=== PATIENT | male | born 1975 | race Two or more races ===

== ENCOUNTER 2016-07-06 10:41 | Inpatient (IN) | payer OTHER ==
[2016-07-06 11:46] VITALS: BMI 26.9
--- NOTE | 2016-07-06 12:39 | HP ---
CIWA Score - CIWA Score Nausea/Vomitin Muscle Tremors: 3 Anxiety: 3 Agitation: 3 Paroxysmal Sweats: 1-Minimal Palms Moist Orientation: 0-Oriented Tacttile Disturbances: 2-Mild Itch/Numbness/Burn Auditory Disturbances: 2-Mild Harshness/Frighten Visual Disturbances: 2-Mild Sensitivity Headache: 2-Mild CIWA-Ar Total Score: 21 Admission ROS BHS - HPI Chief Complaint: I NEED HELP TO STOP USING DRUGS XANAX,COCAINE,HEROIN,ALCOHOL,MMTP 50 MGS/DAY, LAST MEDICATED TODAY UMBILICAL HERNIA LAST DETOX [facility] 01/09 NICOTINE DEPENDENCE NIELSON LOSS NO SIGNIFICANT PERIOD OF SOBRIETY Allergies/Adverse Reactions: Allergies Allergy/AdvReac Type Severity Reaction Status Date / Time No Known Allergies Allergy Verified 07/06/16 12:29 History of Present Illness: THIS 40 YEARS OLD MALE WITH MULTIPLE DRUGS USING,ALCOHOL,MMTP FOR DETOX MENTIONED Exam Limitations: No Limitations - Ebola screening Have you traveled outside of the country in the last 21 days: No Have you been sick,other than usual withdrawal symptoms: No Do you have a fever: No - Review of Systems Constitutional: Chills, Loss of Appetite, Malaise, Night Sweats, Changes in sleep, Weakness, Unintentional Wgt. Loss EENT: reports: Tearing, Nose Congestion Respiratory: reports: No Symptoms reported Cardiac: reports: No Symptoms Reported GI: reports: Nausea, Poor Appetite, Abdominal cramping : reports: No Symptoms Reported Musculoskeletal: reports: Back Pain, Joint Pain, Muscle Pain, Joint Stiffness Integumentary: reports: Dryness Neuro: reports: Headache, Tremors Endocrine: reports: No Symptoms Reported Hematology: reports: No Symptoms Reported Psychiatric: reports: Anxious (INSOMNIA), Depressed Patient History - Patient Medical History Hx Anemia: No Hx Asthma: No Hx Chronic Obstructive Pulmonary Disease (COPD): No Hx Cancer: No Hx Cardiac Disorders: No Hx Congestive Heart Failure: No Hx Hypertension: No Hx Hypercholesterolemia: No Hx Pacemaker: No HX Cerebrovascular Accident: No Hx Seizures: No Hx Dementia: No Hx Diabetes: No Hx Gastrointestinal Disorders: No Hx Liver Disease: No Hx Genitourinary Disorders: No Hx Sexually Transmitted Disorders: No Hx Renal Disease (ESRD): No Hx Thyroid Disease: No Hx Human Immunodeficiency Virus (HIV): No ([place] 01/09) Hx Hepatitis C: No Hx Depression: Yes (ANXIETY,INSOMNIA) Hx Suicide Attempt: No Hx Bipolar Disorder: No Hx Schizophrenia: No Other Medical History: LOW BACK PAIN,UMBILICAL HERNIA - Patient Surgical History Past Surgical History: No - PPD History Previous Implant?: Yes Documented Results: Negative w/o proof Implanted On Prior [facility] Admission?: No - Smoking Cessation Smoking history: Current every day smoker Have you smoked in the past 12 months: Yes Aproximately how many cigarettes per day: 20 Cigars Per Day: 0 Hx Chewing Tobacco Use: No Initiated information on smoking cessation: Yes 'Breaking Loose' booklet given: 07/06/16 - Substance & Tx. History Hx Alcohol Use: Yes Hx Substance Use: Yes Substance Use Type: Alcohol, Cocaine, Heroin, Tranquilizers Hx Substance Use Treatment: Yes (LAST [facility] IN 01/09) - Substances Abused Alprazolam (Xanax) Route: Oral Frequency: Daily Amount used: 4MG Age of first use: 39 Date of Last Use: 07/05/16 Cocaine Route: Smoking Frequency: 1-2 times per week Amount used: $20 Age of first use: 19 Date of Last Use: 07/04/16 Heroin Route: Injection Frequency: Daily Amount used: 10 BAGS Age of first use: 36 Date of Last Use: 07/06/16 Alcohol Route: Oral Frequency: 1-2 times per week Amount used: 2-3 16 OZ BEERS Age of first use: 20 Date of Last Use: 07/06/16 Family Disease History - Family Disease History Family History: Denies Admission Physical Exam BHS - Vital Signs Vital Signs: Vital Signs - 24 hr 07/06/16 11:44 Temperature 96.3 F L Pulse Rate 73 Respiratory 20 Rate Blood Pressure 109/69 - Physical General Appearance: Yes: Moderate Distress, Tremorous, Irritable, Sweating, Anxious HEENTM: Yes: Nasal Congestion Respiratory: Yes: Lungs Clear Neck: Yes: Within Normal Limits Breast: Yes: Within Normal Limits Cardiology: Yes: Within Normal Limits, Regular Rhythm, Regular Rate, S1, S2 Abdominal: Yes: Normal Bowel Sounds, Non Tender, Flat, Soft, Other (UMBILICAL HERNIA) Genitourinary: Yes: Within Normal Limits Back: Yes: Muscle Spasm Musculoskeletal: Yes: Back pain, Muscle Pain Extremities: Yes: Tremors Neurological: Yes: glazier structural glass II-XII NML intact, Fully Oriented, Alert, Motor Strength 5/5 Integumentary: Yes: Dry Lymphatic: Yes: Within Normal Limits - Diagnostic (1) Uncomplicated sedative, hypnotic or anxiolytic withdrawal Current Visit: Yes Status: Acute (2) Methadone maintenance therapy patient Current Visit: Yes Status: Acute (3) Heroin abuse Current Visit: Yes Status: Acute (4) Cocaine abuse Current Visit: Yes Status: Acute (5) Alcohol abuse Current Visit: Yes Status: Acute (6) Umbilical hernia Current Visit: Yes Status: Acute (7) Weight loss Current Visit: Yes Status: Acute (8) Anxiety and depression Current Visit: Yes Status: Acute (9) Insomnia Current Visit: Yes Status: Acute Cleared for Admission S - Detox or Rehab [facility] Level of Care: Medically Managed Detox Regimen/Protocol: Valium S Breath Alcohol Content Breath Alcohol Content: 0 Urine Drug Screen - Results Drug Screen Negative: No Urine Drug Screen Results: CHRIS-Cocaine, OPI-Opiates, BZO-Benzodiazepines, MTD- Methadone
[2016-07-06] MEDS ORDERED: MAGNESIUM CITRATE 300 ML BOTTLE PO PRN (12:52)
[2016-07-06] MEDS ORDERED: P-EPHED 60MG/TRIPROLIDI 2.5MG TABLET PO PRN (12:52)
[2016-07-06] MEDS ORDERED: guaiFENesin/D-METHORPHAN HB 10 ML UNIT-DOSE CUPS PO PRN (12:52)
[2016-07-06] MEDS ORDERED: diazePAM 5 MG TABLET PO PRN (12:52)
[2016-07-06] MEDS ORDERED: LOPERAMIDE HCL 2 MG CAPSULE PO PRN (12:52)
[2016-07-06] MEDS ORDERED: diazePAM 5 MG TABLET PO ONE (12:52)
[2016-07-06] MEDS ORDERED: MAG HYDROX/AL HYDROX/SIMETH 30 ML UNIT-DOSE CUP PO PRN (12:52)
[2016-07-06] MEDS ORDERED: MENTHOL/PHENOL 1 EACH UD MM PRN (12:52)
[2016-07-06] MEDS ORDERED: MAGNESIUM HYDROX 2400MG/30ML ORAL SUSPENSION 30 ML CUP PO PRN (12:52)
[2016-07-06] MEDS ORDERED: IBUPROFEN 400 MG TABLET (FP) PO PRN (12:52)
[2016-07-06] MEDS ORDERED: ACETAMINOPHEN 325 MG TABLET (FP) PO PRN (12:52)
[2016-07-06] MEDS ORDERED: hydrOXYzine PAMOATE 50 MG CAPSULE (FP) PO PRN (12:52)
[2016-07-06] MEDS: diazePAM 5 MG TABLET PO SCH ×2 (14:23→22:25)
[2016-07-06] MEDS: NICOTINE 21 MG/24 HOURS TOPICAL PATCH TD SCH (14:23)
[2016-07-06 19:24] LABS: URINE APPEARANCE CLEAR; URINE BILIRUBIN 1+ (NEGATIVE); URINE BLOOD NEGATIVE (NEGATIVE); URINE COLOR YELLOW; URINE GLUCOSE (UA) NEGATIVE (NEGATIVE); URINE KETONE NEGATIVE (NEGATIVE); URINE LEUK ESTERASE NEGATIVE (NEGATIVE); URINE NITRITE NEGATIVE (NEGATIVE); URINE PROTEIN NEGATIVE (NEGATIVE); URINE UROBILINOGEN 0.2 E.U/dl E.U./dl (0.2-1.0)
[2016-07-06] MEDS: diphenhydrAMINE HCL 50 MG CAPSULE PO PRN (22:25)
[2016-07-06] MEDS: THIAMINE HCL 100 MG TABLET (FP) PO SCH (22:25)
[2016-07-07] MEDS ORDERED: METHADONE HCL 40 MG DISPERSABLE TABLET ONE (04:54)
[2016-07-07] MEDS ORDERED: METHADONE HCL 10 MG TABLET ONE (04:54)
[2016-07-07] MEDS: METHADONE 40 MG, METHADONE 10 MG PO SCH (05:29)
[2016-07-07] MEDS: diazePAM 5 MG TABLET PO SCH ×3 (05:29→22:36)
[2016-07-07] MEDS ORDERED: METHADONE HCL 40 MG DISPERSABLE TABLET PO SCH (06:00)
[2016-07-07 08:44] LABS: HIV 1 & 2 AB NEGATIVE; HIV 1 AGp24 NEGATIVE
--- NOTE | 2016-07-07 09:16 | CONSULT ---
[facility] Psychiatric Consult - Data Date of interview: 07/07/16 Admission source: [facility] Identifying data: This is 40 years old male with no psychiatric hospitalization history intoxicated with: Alcohol, Nicotine, Opioids, Xanax and Cocaine Substance Abuse History: Urine Drug Screen Results: CHRIS-Cocaine, OPI-Opiates, BZO-Benzodiazepines, MTD-Methadone. - Smoking Cessation. Smoking history: Current every day smoker. Have you smoked in the past 12 months: Yes. Aproximately how many cigarettes per day: 20. Cigars Per Day: 0. Hx Chewing Tobacco Use: No. Initiated information on smoking cessation: Yes. 'Breaking Loose' booklet given: 07/06/16. - Substance & Tx. History. Hx Alcohol Use: Yes. Hx Substance Use: Yes. Substance Use Type: Alcohol, Cocaine, Heroin, Tranquilizers. Hx Substance Use Treatment: Yes (LAST [facility] IN 01/09) Medical History: Weight loss history, MMTP- 50/DAY Psychiatric History: Patient reports history of depression and anxiety, reports no medications taking prior to admission Physical/Sexual Abuse/Trauma History: Denies Additional Comment: Urine Drug Screen Results: CHRIS-Cocaine, OPI-Opiates, BZO- Benzodiazepines, MTD-Methadone. Observation. Detox Care Protocol Mental Status Exam - Mental Status Exam Alert and Oriented to: Person Cognitive Function: Fair Patient Appearance: Unkempt Mood: Sad Affect: Flat Patient Behavior: Sedated Speech Pattern: Delayed Voice Loudness: Normal, Mildly Soft/Quiet Thought Process: Circumstantial Thought Disorder: Being Controlled Hallucinations: Denies Suicidal Ideation: Denies Homicidal Ideation: Denies Insight/Judgement: Fair Sleep: Difficulty falling asleep Appetite: Weight loss Muscle strength/Tone: Mild Hypotonicity Gait/Station: Shuffling Additional Comments: Observation. Detox Care Protocol Psychiatric Findings - Problem List ([place] 1, 2,3) (1) Alcohol abuse Current Visit: Yes Status: Acute (2) Anxiety and depression Current Visit: Yes Status: Acute (3) Cocaine abuse Current Visit: Yes Status: Acute (4) Heroin abuse Current Visit: Yes Status: Acute (5) Methadone maintenance therapy patient Current Visit: Yes Status: Acute (6) Uncomplicated sedative, hypnotic or anxiolytic withdrawal Current Visit: Yes Status: Acute (7) Drug-induced mood disorder Current Visit: Yes Status: Suspected - Initial Treatment Plan Initial Treatment Plan: Observation. Detox Care Protocol
[2016-07-07 10:10] LABS: MCH 30.5 pg (25.7-33.7); MCHC 33.3 g/dl (32.0-35.9); MEAN CELL VOLUME 91.4 fl (80-96); MEAN PLT VOLUME 11.9 fl (7.5-11.1); PLATELET COUNT 170 K/MM3 (134-434); RDW 12.7 % (11.9-15.9); WHITE BLOOD COUNT 5.6 K/mm3 (4.0-10.0)
[2016-07-07 10:12] LABS: ALBUMIN 3.8 g/dl (3.4-5.0); ANION GAP 6 (8-16); CALCIUM 8.5 mg/dL (8.5-10.1); CO2 31 mmol/L (21-32)
--- NOTE | 2016-07-07 10:15 | EKG ---
Test Reason : Blood Pressure : / mmHG Vent. Rate : 057 BPM Atrial Rate : 057 BPM P-R Int : 124 ms QRS Dur : 088 ms QT Int : 430 ms P-R-T Axes : 049 055 005 degrees QTc Int : 418 ms SINUS BRADYCARDIA INCREASED R/S RATIO IN V1, CONSIDER EARLY TRANSITION OR POSTERIOR INFARCT ABNORMAL ECG NO PREVIOUS ECGS AVAILABLE Confirmed by BELIA CASTELLON MD ([id number]) on 07/07/2016 10:15:20 AM Referred By: Confirmed By:BELIA CASTELLON MD
[2016-07-07 10:17] LABS: ALK PHOS 57 U/L (45-117); BILIRUBIN,TOTAL 0.6 mg/dL (0.2-1.0); CREATININE 0.9 mg/dL (0.7-1.3); GLUCOSE,RANDOM 105 mg/dL (74-106); SGOT/AST 27 U/L (15-37); SGPT/ALT 26 U/L (12-78); TOT PROT 7.3 g/dl (6.4-8.2)
--- NOTE | 2016-07-07 11:11 | PN ---
S CIWA - CIWA Score Nausea/Vomitin-Mild Nausea/No Vomiting Muscle Tremors: 4-Moderate,w/Arms Extend Anxiety: 3 Agitation: 4-Moderately Restless Paroxysmal Sweats: 3 Orientation: 0-Oriented Tacttile Disturbances: 0-None Auditory Disturbances: 0-None Visual Disturbances: 0-None Headache: 1-Very Mild CIWA-Ar Total Score: 16 BHS Progress Note (SOAP) Subjective: sweats tired interrupted sleep irritable anxiety Objective: 07/07/16 11:10 Vital Signs Temperature 97.9 F 07/07/16 10:02 Pulse Rate 67 07/07/16 10:02 Respiratory Rate 20 07/07/16 10:02 Blood Pressure 107/75 07/07/16 10:02 O2 Sat by Pulse Oximetry (%) Laboratory Tests 07/06/16 07/06/16 07/07/16 12:00 14:00 06:00 WBC 5.6 RBC 4.43 Hgb 13.5 Hct 40.5 MCV 91.4 MCHC 33.3 RDW 12.7 Plt Count 170 MPV 11.9 H Sodium Potassium Chloride Carbon Dioxide Anion Gap BUN Creatinine Creat Clearance w eGFR Random Glucose Calcium Total Bilirubin AST ALT Alkaline Phosphatase Total Protein Albumin Urine Color Yellow Urine Appearance Clear Urine pH 6.0 Ur Specific [place] 1.025 Urine Protein Negative Urine Glucose (UA) Negative Urine Ketones Negative Urine Blood Negative Urine Nitrite Negative Urine Bilirubin 1+ H Urine Urobilinogen 0.2 e.u/dl Ur Leukocyte Esterase Negative RPR Titer HIV 1&2 Antibody Screen Negative HIV P24 Antigen Negative 07/07/16 07/07/16 06:00 06:00 WBC RBC Hgb Hct MCV MCHC RDW Plt Count MPV Sodium 140 Potassium 4.2 Chloride 103 Carbon Dioxide 31 Anion Gap 6 L BUN 9 Creatinine 0.9 Creat Clearance w eGFR > 60 Random Glucose 105 Calcium 8.5 Total Bilirubin 0.6 AST 27 ALT 26 Alkaline Phosphatase 57 Total Protein 7.3 Albumin 3.8 Urine Color Urine Appearance Urine pH Ur Specific [place] Urine Protein Urine Glucose (UA) Urine Ketones Urine Blood Urine Nitrite Urine Bilirubin Urine Urobilinogen Ur Leukocyte Esterase RPR Titer Nonreactive HIV 1&2 Antibody Screen HIV P24 Antigen awake/alert ambulating no acute distress Assessment: 07/07/16 11:10 withdrawal sx Plan: continue detox increase fluids
[2016-07-07] MEDS ORDERED: INFLUENZA VACCINE 45 MCG/0.5 ML (MDV 16-17) IM ONE (12:00)
[2016-07-07] MEDS: NICOTINE 21 MG/24 HOURS TOPICAL PATCH TD SCH (12:19)
[2016-07-07] MEDS: PRENATAL VITAMINS W/ FOLIC ACID TABLET (FP) PO SCH (12:19)
[2016-07-07] MEDS ORDERED: LIDOCAINE 5% TOPICAL PATCH TP ONE (14:11)
[2016-07-07] MEDS: diphenhydrAMINE HCL 50 MG CAPSULE PO PRN (22:36)
[2016-07-07] MEDS: THIAMINE HCL 100 MG TABLET (FP) PO SCH (22:36)
--- NOTE | 2016-07-07 23:57 | EKG ---
Test Reason : Blood Pressure : / mmHG Vent. Rate : 060 BPM Atrial Rate : 060 BPM P-R Int : 130 ms QRS Dur : 092 ms QT Int : 444 ms P-R-T Axes : 051 051 007 degrees QTc Int : 444 ms NORMAL SINUS RHYTHM NORMAL ECG WHEN COMPARED WITH ECG OF 06-JUL-2016 14:09, NO SIGNIFICANT CHANGE WAS FOUND Confirmed by SUNNY WEST MD ([id number]) on 07/07/2016 11:56:44 PM Referred By: Confirmed By:SUNNY WEST MD
[2016-07-08] MEDS ORDERED: METHADONE HCL 10 MG TABLET ONE (04:16)
[2016-07-08] MEDS ORDERED: METHADONE HCL 40 MG DISPERSABLE TABLET ONE (04:17)
--- NOTE | 2016-07-08 09:49 | PN ---
S CIWA - CIWA Score Nausea/Vomitin Muscle Tremors: 2 Anxiety: 2 Agitation: 3 Paroxysmal Sweats: 3 Orientation: 0-Oriented Tacttile Disturbances: 2-Mild Itch/Numbness/Burn Auditory Disturbances: 0-None Visual Disturbances: 0-None Headache: 0-None Present CIWA-Ar Total Score: 14 BHS Progress Note (SOAP) Subjective: interrupted sleep, lbp Objective: 07/08/16 09:49 Laboratory Tests 07/06/16 07/06/16 07/07/16 12:00 14:00 06:00 WBC 5.6 RBC 4.43 Hgb 13.5 Hct 40.5 MCV 91.4 MCHC 33.3 RDW 12.7 Plt Count 170 MPV 11.9 H Sodium Potassium Chloride Carbon Dioxide Anion Gap BUN Creatinine Creat Clearance w eGFR Random Glucose Calcium Total Bilirubin AST ALT Alkaline Phosphatase Total Protein Albumin Urine Color Yellow Urine Appearance Clear Urine pH 6.0 Ur Specific [place] 1.025 Urine Protein Negative Urine Glucose (UA) Negative Urine Ketones Negative Urine Blood Negative Urine Nitrite Negative Urine Bilirubin 1+ H Urine Urobilinogen 0.2 e.u/dl Ur Leukocyte Esterase Negative RPR Titer HIV 1&2 Antibody Screen Negative HIV P24 Antigen Negative 07/07/16 07/07/16 06:00 06:00 WBC RBC Hgb Hct MCV MCHC RDW Plt Count MPV Sodium 140 Potassium 4.2 Chloride 103 Carbon Dioxide 31 Anion Gap 6 L BUN 9 Creatinine 0.9 Creat Clearance w eGFR > 60 Random Glucose 105 Calcium 8.5 Total Bilirubin 0.6 AST 27 ALT 26 Alkaline Phosphatase 57 Total Protein 7.3 Albumin 3.8 Urine Color Urine Appearance Urine pH Ur Specific [place] Urine Protein Urine Glucose (UA) Urine Ketones Urine Blood Urine Nitrite Urine Bilirubin Urine Urobilinogen Ur Leukocyte Esterase RPR Titer Nonreactive HIV 1&2 Antibody Screen HIV P24 Antigen Vital Signs Temperature 98.8 F 07/08/16 05:51 Pulse Rate 65 07/08/16 05:51 Respiratory Rate 16 07/08/16 05:51 Blood Pressure 108/62 07/08/16 05:51 O2 Sat by Pulse Oximetry (%) 07/08/16 14:55 pt aox3 in nad ambulating Assessment: 07/08/16 14:55 withdrawl sx's lbp Plan: cont. detox increase fluids motrin prn
[2016-07-08] MEDS: PRENATAL VITAMINS W/ FOLIC ACID TABLET (FP) PO SCH (10:33)
[2016-07-08] MEDS: METHADONE 40 MG, METHADONE 10 MG PO SCH (10:33)
[2016-07-08] MEDS: diazePAM 5 MG TABLET PO SCH ×2 (10:36→22:34)
[2016-07-08] MEDS: LIDOCAINE 5% TOPICAL PATCH TP SCH (13:05)
[2016-07-08] MEDS: NICOTINE 21 MG/24 HOURS TOPICAL PATCH TD SCH (13:05)
[2016-07-08] MEDS: THIAMINE HCL 100 MG TABLET (FP) PO SCH (22:34)
[2016-07-08] MEDS: diphenhydrAMINE HCL 50 MG CAPSULE PO PRN (22:34)
[2016-07-09] MEDS ORDERED: METHADONE HCL 40 MG DISPERSABLE TABLET ONE (04:40)
[2016-07-09] MEDS ORDERED: METHADONE HCL 10 MG TABLET ONE (04:40)
[2016-07-09] MEDS: METHADONE 40 MG, METHADONE 10 MG PO SCH (08:44)
--- NOTE | 2016-07-09 10:14 | PN ---
S Progress Note (SOAP) Subjective: ALERT,IRRITABLE,ANXIOUS,INTERRUPTED SLEEP, Objective: 07/09/16 10:13 Vital Signs Temperature 99.1 F 07/09/16 10:04 Pulse Rate 68 07/09/16 10:04 Respiratory Rate 18 07/09/16 10:04 Blood Pressure 114/72 07/09/16 10:04 O2 Sat by Pulse Oximetry (%) Assessment: 07/09/16 10:14 WITHDRAWAL SYMPTOM Plan: CONTINUE DETOX,DISCHARGE IN AM
[2016-07-09] MEDS: PRENATAL VITAMINS W/ FOLIC ACID TABLET (FP) PO SCH (10:35)
[2016-07-09] MEDS: diazePAM 5 MG TABLET PO SCH ×2 (10:35→22:20)
[2016-07-09] MEDS: NICOTINE 21 MG/24 HOURS TOPICAL PATCH TD SCH (10:35)
[2016-07-09] MEDS: LIDOCAINE 5% TOPICAL PATCH TP SCH (14:35)
[2016-07-09] MEDS: THIAMINE HCL 100 MG TABLET (FP) PO SCH (22:20)
[2016-07-09] MEDS: diphenhydrAMINE HCL 50 MG CAPSULE PO PRN (22:20)
[2016-07-10] MEDS ORDERED: METHADONE HCL 10 MG TABLET ONE (06:50)
[2016-07-10] MEDS ORDERED: METHADONE HCL 40 MG DISPERSABLE TABLET ONE (06:50)
--- NOTE | 2016-07-10 09:18 | PN ---
S Progress Note (SOAP) Subjective: ALERT,NO COMPLAINT Objective: 07/10/16 09:17 Vital Signs Temperature 97.3 F L 07/10/16 06:00 Pulse Rate 55 L 07/10/16 06:00 Respiratory Rate 18 07/10/16 06:00 Blood Pressure 114/77 07/10/16 06:00 O2 Sat by Pulse Oximetry (%) Assessment: 07/10/16 09:17 DETOX COMPLETED,NO WITHDRAWAL SYMPTOM Plan: DISCHARGE TODAY,FOLLOW UP WITH [facility] APPOINTMENT
--- NOTE | 2016-07-10 09:21 | DS ---
[facility] Detox Discharge Summary Admission Date: 07/06/16 Discharge Date: 07/10/16 - History Present History: Alcohol Dependence, Cocaine Dependence, Sedative Dependence, MMTP Additional Comments: FOLLOW UP WITH [facility] Pertinent Past History: UMBILICAL HERNIA ANXIETY AND DEPRESSION INSOMNIA - Physical Exam Results Vital Signs: Vital Signs Temperature 97.3 F L 07/10/16 06:00 Pulse Rate 55 L 07/10/16 06:00 Respiratory Rate 18 07/10/16 06:00 Blood Pressure 114/77 07/10/16 06:00 O2 Sat by Pulse Oximetry (%) Pertinent Admission Physical Exam Findings: WITHDRAWAL SYMPTOM - Treatment Hospital Course: Detox Protocol Followed, Detoxed Safely, Responded well, Discharged Condition Good, Rehab Referral Accepted Patient has Accepted a Rehab Referral to: [facility] - Medication Discharge Medications: Ambulatory Orders NK [No Known Home Medication] 07/06/16 - Diagnosis (1) Uncomplicated sedative, hypnotic or anxiolytic withdrawal Current Visit: Yes Status: Acute (2) Methadone maintenance therapy patient Current Visit: Yes Status: Acute (3) Heroin abuse Current Visit: Yes Status: Acute (4) Cocaine abuse Current Visit: Yes Status: Acute (5) Alcohol abuse Current Visit: Yes Status: Acute (6) Umbilical hernia Current Visit: Yes Status: Acute (7) Weight loss Current Visit: Yes Status: Acute (8) Anxiety and depression Current Visit: Yes Status: Acute (9) Insomnia Current Visit: Yes Status: Acute - AMA Did Patient Leave Against Medical Advice: No
[2016-07-10] MEDS ORDERED: diazePAM 5 MG TABLET PO SCH (10:00)
[2016-07-10 10:27] VITALS: BP 119/74; PULSE 75; TEMP 96.4
[2016-07-10] MEDS: METHADONE 40 MG, METHADONE 10 MG PO SCH (10:41)
[2016-07-10] MEDS: PRENATAL VITAMINS W/ FOLIC ACID TABLET (FP) PO SCH (10:41)
[2016-07-10] MEDS: LIDOCAINE 5% TOPICAL PATCH TP SCH (10:44)
[2016-07-10] MEDS: NICOTINE 21 MG/24 HOURS TOPICAL PATCH TD SCH (10:45)
== END 2016-07-10 12:27 | disposition other institution (70) | DRG 773 ==
LOC: YASAS 10:41 → Y6N 13:05
PROVIDERS: ADMIT Internal Medicine Addiction Medicine; ATTEND Internal Medicine Addiction Medicine
PROC: HZ2ZZZZ Detoxification Services for Substance Abuse Treatment (ICD-10-PCS; principal; 2016-07-06)
DX: F13.230 Sedative, hypnotic or anxiolytic dependence with withdrawal, uncomplicated (principal); F11.20 Opioid dependence, uncomplicated; F14.10 Cocaine abuse, uncomplicated; F10.10 Alcohol abuse, uncomplicated; F17.210 Nicotine dependence, cigarettes, uncomplicated; F41.8 Other specified anxiety disorders; F19.24 Other psychoactive substance dependence with psychoactive substance-induced mood disorder; K42.9 Umbilical hernia without obstruction or gangrene; G47.00 Insomnia, unspecified; M54.5 Low back pain; Z87.898 Personal history of other specified conditions
CPT/HCPCS: 36415; 80053; 81003; 85027; 86593; 87389; 93005; 93010

== ENCOUNTER 2016-07-10 12:36 | Inpatient (IN) | payer OTHER ==
[2016-07-10 12:59] VITALS: BMI 27.3
[2016-07-10] MEDS ORDERED: MAG HYDROX/AL HYDROX/SIMETH 30 ML UNIT-DOSE CUP PO PRN (13:19)
[2016-07-10] MEDS ORDERED: guaiFENesin/D-METHORPHAN HB 10 ML UNIT-DOSE CUPS PO PRN (13:19)
[2016-07-10] MEDS ORDERED: P-EPHED 60MG/TRIPROLIDI 2.5MG TABLET PO PRN (13:19)
[2016-07-10] MEDS ORDERED: LOPERAMIDE HCL 2 MG CAPSULE PO PRN (13:19)
[2016-07-10] MEDS ORDERED: MAGNESIUM CITRATE 300 ML BOTTLE PO PRN (13:19)
[2016-07-10] MEDS ORDERED: MENTHOL/PHENOL 1 EACH UD MM PRN (13:19)
[2016-07-10] MEDS ORDERED: IBUPROFEN 400 MG TABLET (FP) PO PRN (13:19)
[2016-07-10] MEDS ORDERED: ACETAMINOPHEN 325 MG TABLET (FP) PO PRN (13:19)
[2016-07-10] MEDS ORDERED: MAGNESIUM HYDROX 2400MG/30ML ORAL SUSPENSION 30 ML CUP PO PRN (13:19)
[2016-07-10] MEDS ORDERED: hydrOXYzine PAMOATE 50 MG CAPSULE (FP) PO PRN (13:19)
[2016-07-10] MEDS ORDERED: NICOTINE POLACRILEX 2 MG GUM BUC PRN (13:19)
--- NOTE | 2016-07-10 13:24 | HP ---
[facility] Rehab Assess/Revision - Admission History Admitted to Rehab from: [facility] Date of Admission to Rehab: 07/10/16 - Vital signs Vital Signs: Vital Signs Period Temp Pulse Resp BP Sys/Qureshi Pulse Ox Last 24 Hr 97.7 F 82 18 102/71 - Findings Detox History & Physical reviewed: Yes Concur with findings: Yes Comments/Additional Findings: FOR REHAB PROTOCOL
[2016-07-10] MEDS: diphenhydrAMINE HCL 50 MG CAPSULE PO PRN (21:19)
[2016-07-10] MEDS: THIAMINE HCL 100 MG TABLET (FP) PO SCH (21:19)
[2016-07-11] MEDS ORDERED: METHADONE HCL 10 MG TABLET PO SCH (06:00)
[2016-07-11] MEDS: LIDOCAINE 5% TOPICAL PATCH TP SCH (09:00)
[2016-07-11] MEDS: NICOTINE 21 MG/24 HOURS TOPICAL PATCH TD SCH (09:00)
[2016-07-11] MEDS: PRENATAL VITAMINS W/ FOLIC ACID TABLET (FP) PO SCH (09:00)
[2016-07-11] MEDS: diphenhydrAMINE HCL 50 MG CAPSULE PO PRN (21:22)
[2016-07-11] MEDS: THIAMINE HCL 100 MG TABLET (FP) PO SCH (21:22)
[2016-07-12] MEDS ORDERED: METHADONE HCL 10 MG TABLET ONE (05:26)
[2016-07-12] MEDS ORDERED: METHADONE HCL 40 MG DISPERSABLE TABLET ONE (05:26)
[2016-07-12] MEDS ORDERED: METHADONE 40 MG, METHADONE 10 MG PO SCH (06:00)
[2016-07-12] MEDS: PRENATAL VITAMINS W/ FOLIC ACID TABLET (FP) PO SCH (09:58)
[2016-07-12] MEDS: NICOTINE 21 MG/24 HOURS TOPICAL PATCH TD SCH (09:58)
[2016-07-12] MEDS ORDERED: METHADONE HCL 10 MG TABLET PO SCH (10:00)
[2016-07-12] MEDS: LIDOCAINE 5% TOPICAL PATCH TP SCH (11:06)
--- NOTE | 2016-07-12 20:21 | PN ---
[facility] Progress Note Note: RECEIVED NURSE CALL REQUESTS ENSURE BMI 27.3 ENSURE WITH DIET CONTINUE REHAB
[2016-07-12] MEDS: diphenhydrAMINE HCL 50 MG CAPSULE PO PRN (21:42)
[2016-07-12] MEDS: THIAMINE HCL 100 MG TABLET (FP) PO SCH (21:42)
--- NOTE | 2016-07-13 07:11 | HP ---
Psychiatrist Admission - Data Date of interview: 07/13/16 Admission source: [facility]N Identifying data: This is the first [facility] admission for this 40 years old , unemployed with nosource of income, domiciled living with spouse Medical History: Significant for LBP and S/P Umbilical Hernia repair. Patient is Methadone 50 mg po daily. Smokes cigarettes 1ppd Vital Signs: Vital Signs - 24 hr 07/13/16 07/13/16 07/13/16 00:30 03:30 06:43 Temperature 97.2 F L Pulse Rate 60 Respiratory 18 18 18 Rate Blood Pressure 107/69 Allergies/Adverse Reactions: Allergies Allergy/AdvReac Type Severity Reaction Status Date / Time No Known Allergies Allergy Verified 07/10/16 12:41 Date of last physical exam: 07/06/16 Concur with the findings of this exam: Yes - Substance Abuse/Tx History Hx Alcohol Use: Yes Hx Substance Use: Yes Substance Use Type: Alcohol (Started drinking alcohol at age 20, consumes 2-3x 16 oz daily. Last drink on 07/06/16), Cocaine (Started using cocaine at age 19, consumes $20 worth 1-2 times weekly. Last used on 07/04/16), Heroin (Started using heroin at age 36, consumes 10 bags daily. Last used on 07/06/16), Tranquilizers (Started using xanax at age 39, consumes 4 mg daily. Last used on 07/05/16) - Admission Criteria Poor recovery environment: Yes Comorbidities: Yes Lacks judgement: Yes Psychiatric Findings - Problem List ([place] 1, 2,3) (1) Alcohol dependence Current Visit: Yes Status: Acute (2) Sedative dependence Current Visit: Yes Status: Acute (3) Cocaine abuse Current Visit: No Status: Acute (4) Opioid dependence on agonist therapy Current Visit: Yes Status: Acute (5) Nicotine dependence Current Visit: Yes Status: Acute
[2016-07-13] MEDS ORDERED: METHADONE HCL 10 MG TABLET ONE (08:54)
[2016-07-13] MEDS ORDERED: METHADONE HCL 40 MG DISPERSABLE TABLET ONE (08:55)
--- NOTE | 2016-07-13 09:16 | PN ---
Psychiatric Progress Note Vital Signs: Vital Signs Period Temp Pulse Resp BP Sys/Qureshi Pulse Ox Last 24 Hr 97.2 F 60 18-18 107/69 Current Medications: Active Medications Generic Name Dose Route Start Last Admin Trade Name Freq PRN Reason Stop Dose Admin Acetaminophen 650 mg 07/10/16 13:19 Tylenol - PO Q4H PRN FEVER OR PAIN Al Hydroxide/Mg Hydroxide 30 ml 07/10/16 13:19 Mylanta Oral Suspension - PO Q6H PRN DYSPEPSIA Diphenhydramine HCl 50 mg 07/10/16 13:19 07/12/16 21:42 Benadryl - PO 50 mg HSMR1 PRN Administration FOR ITCHING Eucalyptus/Menthol/Phenol/Sorbitol 1 each 07/10/16 13:19 Cepastat Lozenge - MM Q4H PRN SORE THROAT Guaifenesin 10 ml 07/10/16 13:19 Robitussin Dm - PO Q6H PRN COUGH Hydroxyzine Pamoate 50 mg 07/10/16 13:19 Vistaril - PO Q4H PRN AGITATION Ibuprofen 400 mg 07/10/16 13:19 Motrin - PO Q6H PRN PAIN Lidocaine 1 patch 07/11/16 10:00 07/12/16 11:06 Lidoderm Patch - TP Not Given DAILY ISA Loperamide HCl 4 mg 07/10/16 13:19 Imodium - PO Q6H PRN DIARRHEA Magnesium Hydroxide 30 ml 07/10/16 13:19 Milk Of Magnesia - PO DAILY PRN CONSTIPATION Methadone HCl 40 mg/ Methadone 50 mg 07/13/16 10:00 HCl 10 mg PO 07/19/16 05:59 DAILY@1000 ISA Nicotine 21 mg 07/11/16 10:00 07/12/16 09:58 Nicoderm Patch - TD 21 mg DAILY ISA Administration Nicotine Polacrilex 2 mg 07/10/16 13:19 Nicorette Gum - BUC Q2H PRN NICOTINE REPLACEMENT RX Multivit/Folic Acid/Iron 1 tab 07/11/16 10:00 07/12/16 09:58 Vitamins ([facility]) - PO 1 tab DAILY ISA Administration Pseudoephedrine/Triprolidine 1 combo 07/10/16 13:19 Actifed - PO TID PRN NASAL CONGESTION Thiamine HCl 100 mg 07/10/16 22:00 07/12/16 21:42 Vitamin B1 - PO 100 mg HS ISA Administration Psychiatric Treatment Plan - Problem List (1) Alcohol dependence Current Visit: Yes (2) Sedative dependence Current Visit: Yes (3) Cocaine abuse Current Visit: No (4) Opioid dependence on agonist therapy Current Visit: Yes (5) Nicotine dependence Current Visit: Yes
--- NOTE | 2016-07-13 09:30 | PN ---
[facility] Progress Note Note: Patient requests to leave against medical advice. He did not want to talk to technical publications writer saying" I have nothing to say to you. I just want to leave". He told his counselor that his program is not for him and he is going back to his Methadone program. He is stable for discharge AMA
[2016-07-13] MEDS ORDERED: METHADONE 40 MG, METHADONE 10 MG PO SCH ×2 (10:00)
[2016-07-13] MEDS: PRENATAL VITAMINS W/ FOLIC ACID TABLET (FP) PO SCH (10:34)
[2016-07-13] MEDS: LIDOCAINE 5% TOPICAL PATCH TP SCH (10:34)
[2016-07-13] MEDS: NICOTINE 21 MG/24 HOURS TOPICAL PATCH TD SCH (10:36)
[2016-07-13] MEDS: THIAMINE HCL 100 MG TABLET (FP) PO SCH (21:27)
[2016-07-13] MEDS: diphenhydrAMINE HCL 50 MG CAPSULE PO PRN (21:27)
[2016-07-14 07:00] VITALS: BP 120/82; PULSE 64; TEMP 97.6
[2016-07-14] MEDS ORDERED: METHADONE HCL 40 MG DISPERSABLE TABLET PO SCH ×2 (10:00)
[2016-07-14] MEDS: LIDOCAINE 5% TOPICAL PATCH TP SCH (10:20)
[2016-07-14] MEDS: NICOTINE 21 MG/24 HOURS TOPICAL PATCH TD SCH (10:20)
[2016-07-14] MEDS: PRENATAL VITAMINS W/ FOLIC ACID TABLET (FP) PO SCH (10:20)
--- NOTE | 2016-07-14 13:45 | PN ---
[facility] Progress Note Note: Patient did not leave against medical advice as he requested yesterday. Apparently, he wanted to talk to the medical doctor in order to get methadone. Once he was able to get his demand met, he changed his mind and decided to stay. However this morning, he requested to leave against medical advice again and would not wait to be seen by machine sign writer prior to leaving. See staff note for further information
== END 2016-07-14 10:25 | disposition left against medical advice (07) | DRG 770 ==
LOC: YASAS 12:36 → Y3W 12:37
PROVIDERS: ADMIT Psychiatry & Neurology Psychiatry; ATTEND Psychiatry & Neurology Psychiatry
PROC: HZ42ZZZ Group Counseling for Substance Abuse Treatment, Cognitive-Behavioral (ICD-10-PCS; principal; 2016-07-10)
DX: F10.20 Alcohol dependence, uncomplicated (principal); F11.20 Opioid dependence, uncomplicated; F13.20 Sedative, hypnotic or anxiolytic dependence, uncomplicated; F14.10 Cocaine abuse, uncomplicated; F17.210 Nicotine dependence, cigarettes, uncomplicated